=== PATIENT | male | born 1960 | race American Indian/Alaskan Native ===

== ENCOUNTER 2018-10-18 01:42 | Emergency (ER) | payer MEDICAID ==
[2018-10-18 01:47] VITALS: TEMP 97.4
[2018-10-18] MEDS ORDERED: Phenytoin 250 mg/5 ml Inj IVPB ONE (02:13)
--- NOTE | 2018-10-18 02:27 | ED PDOC ---
HPI: Seizure Time Seen by Provider: 10/18/18 01:44 Chief Complaint (Nursing): Seizure Chief Complaint (Provider): Seizure History Per: EMS History/Exam Limitations: clinical condition Recent Seizure Activity Began: Unknown Length Of Seizures (Duration): Unknown Additional Complaint(s): 58 y/o male with a PMHx of seizure disorder brought in by EMS for supposed seizure [place]. Seizure was unwitnessed by healthcare professional. History obtained from EMS. History from patient is limited due to clinical condition/post-ictal state. PMD: Unable to obtain Past Medical History Reviewed: Historical Data, Nursing Documentation, Vital Signs Vital Signs: Last Vital Signs Temp 97.4 F L 10/18/18 01:43 Pulse 103 H 10/18/18 01:43 Resp 18 10/18/18 01:43 BP 135/67 10/18/18 01:43 Pulse Ox 97 10/18/18 01:43 Primary Care Provider: FAMILY PROVIDER,NO - Medical History PMH: Seizures - Surgical History Surgical History: No Surg Hx - Family History Family History: States: Unknown Family Hx - Allergies Allergies/Adverse Reactions: Allergies Allergy/AdvReac Type Severity Reaction Status Date / Time Unobtainable Allergy Verified 10/18/18 01:43 Review of Systems Review Of Systems: ROS cannot be obtained secondary to pt's inabilty to answer questions. Physical Exam - Reviewed Nursing Documentation Reviewed: Yes Vital Signs Reviewed: Yes - Physical Exam Appears: Positive for: No Acute Distress Head Exam: Positive for: ATRAUMATIC, NORMOCEPHALIC Skin: Positive for: Normal Color Eye Exam: Positive for: Normal appearance Neck: Positive for: Normal Cardiovascular/Chest: Negative for: Bradycardia, Tachycardia Respiratory: Negative for: Accessory Muscle Use, Respiratory Distress Extremity: Positive for: Normal ROM Neurological/Psych: Positive for: Awake (but drowsy, mumbling), Other (does not follow commands). Negative for: Oriented - ECG O2 Sat by Pulse Oximetry: 97 (RA) Pulse Ox Interpretation: Normal Medical Decision Making Medical Decision Making: Time: 213 A/P: 58 y/o male with history of seizure disorder, likely post-ictal state. -- Patient is well known to staff and provider for non-compliance of Dilatin -- No signs of trauma noted on physical examination -- Will observe in ED for 2 hours for futher seizure activity 415 -- Patient has had no seizure activity, is now awkae, alert, without deficit -- Patient admits that he may have missed his dose of dilantin -- Strongly advised medication compliance -- Advised patient to followup as outpatient Scribe Attestation: Documented by Annita Woodard, acting as a scribe Kyung Jain MD. Provider Scribe Attestation: All medical record entries made by the Scribe were at my direction and person ally dictated by me. I have reviewed the chart and agree that the record accurately reflects my personal performance of the history, physical exam, medical decision making, and the department course for this patient. I have also personally directed, reviewed, and agree with the discharge instructions and disposition. Disposition - Clinical Impression Clinical Impression: Seizure disorder - Disposition Referrals: [facility] [Outside] Disposition: Routine/Home Disposition Time: 04:49 Condition: IMPROVED Instructions: Seizures, Adult (DC) Forms: [employer] ([place]ik)
[2018-10-18 04:15] VITALS: BP 126/64; PULSE 82; RESP 181
[2018-10-18 04:50] VITALS: O2SAT 97
== END 2018-10-18 04:14 | disposition home or self-care (01) ==
LOC: H.ER 01:42 → EDBD 01:42 → H.ER 04:14
DX: G40.909 Epilepsy, unspecified, not intractable, without status epilepticus (principal); Z91.14 Patient's other noncompliance with medication regimen